=== PATIENT | male | born 1980 | race Caucasian/White ===

== ENCOUNTER 2019-10-08 22:16 | Emergency (ER) | payer SELFPAY ==
[~2019-10-08] VITALS: Ht 195.6 cm; Wt 77.1 kg
--- NOTE | 2019-10-08 22:19 | NUR ---
PT [facility]. TAKEN TO BED 6
--- NOTE | 2019-10-08 22:35 | NUR ---
Dr. Hoskins examining patient.
[2019-10-08 22:36] VITALS: BP 104/62
--- NOTE | 2019-10-08 22:45 | NUR ---
PT TAKEN TO CT
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
--- NOTE | 2019-10-08 23:00 | NUR ---
PT RETURN FROM CT
[2019-10-08] MEDS ORDERED: LIDOCAINE/EPI 1% 1:100000 20 ML VIAL INJ ONE (23:10)
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
[2019-10-09 00:01] VITALS: BP 104/62
== END 2019-10-09 00:19 | disposition home or self-care (01) ==
LOC: MED 22:16
DX: S02.32XA Fracture of orbital floor, left side, initial encounter for closed fracture (principal); S01.112A Laceration without foreign body of left eyelid and periocular area, initial encounter; X58.XXXA Exposure to other specified factors, initial encounter; Y93.89 Activity, other specified; Y92.89 Other specified places as the place of occurrence of the external cause; Y99.8 Other external cause status
CPT/HCPCS: 12013; 70450; 70486; 99285; J2001; 99283

== ENCOUNTER 2019-10-14 11:02 | Emergency (ER) | payer MEDICAID ==
[~2019-10-14] VITALS: Ht 170.2 cm; Wt 73.5 kg
[2019-10-14 11:07] VITALS: BP 130/79
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
--- NOTE | 2019-10-14 11:47 | NUR ---
ERMD AT BEDSIDE
[2019-10-14 12:02] VITALS: BP 128/76
--- NOTE | 2019-10-14 12:02 | NUR ---
Patient discharged with v/s stable. Written and verbal after care instructions given and explained. Patient verbalized understanding. Ambulatory with steady gait. All questions addressed prior to discharge. Advised to follow up with PMD.
== END 2019-10-14 12:02 | disposition home or self-care (01) ==
LOC: MED 11:02
DX: Z48.00 Encounter for change or removal of nonsurgical wound dressing (principal)
CPT/HCPCS: 99281